=== PATIENT | female | born 1955 | race Caucasian/White ===

== ENCOUNTER 2017-07-03 08:21 | Outpatient (CLI) | payer OTHER | END 2017-07-03 08:22 | disposition home or self-care (01) | LOC: BICMAMMO 08:21 | PROVIDERS: ATTEND Obstetrics & Gynecology | DX: Z12.31 Encounter for screening mammogram for malignant neoplasm of breast (principal) | CPT/HCPCS: 77063; 77067 ==

== ENCOUNTER 2018-03-20 13:34 | Outpatient (CLI) | payer OTHER ==
--- NOTE | 2018-03-20 17:07 | MRI ---
MRI THORACIC SPINE WITHOUT CONTRAST: 03/20/18 INDICATION: 62-year-old female with history of radiculopathy and back pain. TECHNIQUE: Multiplanar and multisequence MRI images were obtained in the thoracic spine without IV contrast. No comparisons are available. FINDINGS: No acute fracture is demonstrated. Spinal alignment is preserved. Thoracic spinal cord appears within normal limits. At the T1-T2 level, there is no appreciable central canal or neural foraminal narrowi ng. T2-T3 level: There is a small left paracentral protrusion without appreciable central canal or neural foraminal narrowing. At T3-T4, there is no appreciable central canal or neural foraminal narrowing. There is a small left paracentral protrusion. At T4-T5, there is a small left paracentral protrusion without appreciable central canal or neural fo raminal narrowing. At T5-T6, there is a small central protrusion causing mild ventral effacement of the subarachnoid spa ce and ventral cord. At T6-T7, there is a small central to right paracentral disc protrusion without appreciable central c anal or neural foraminal narrowing. At T7-T8, there is no appreciable central canal or neural foraminal narrowing. At T8-T9, there is no appreciable central canal or neural foraminal narrowing. At T9-T10, there is no appreciable central canal or neural foraminal narrowing. At T10-T11, there is no appreciable central canal or neural foraminal narrowing. At T11-T12, there is no appreciable central canal or neural foraminal narrowing. At T12-L1, there is no appreciable central canal or neural foraminal narrowing. IMPRESSION: Multilevel spondylosis of the thoracic spine with mild central protrusion at T5-T6 causing mild ventr al effacement of the subarachnoid space and ventral cord without cord signal abnormality. POS: [facility]
--- NOTE | 2018-03-20 17:53 | MRI ---
MRI CERVICAL SPINE: 03/20/18 Multiplanar and multisequential imaging cervical spine obtained. INDICATIONS: Herniation cervical intervertebral disc. Chronic neck pain. Comparison made to MRI cervical spine from [facility] dated 11/25/16. FINDINGS: Cervical vertebrae continue to maintain height and alignment. Mild wedging with degenerative osteophy zan are seen at C5, C6 and C7 levels, unchanged from prior exam. There is loss of disc space at C5-6, stable from prior exam. No significant abnormality at C2-3. At C3-4, minimal bulge. Anterior subarachnoid space is preserved. No central canal or significant for aminal stenosis. At C4-5, there is a disc osteophyte complex with disc protrusion centrally and paracentrally to the r ight. This impinges on the anterior cord producing mild indentation of the anterior cord. There is ri ght foraminal encroachment due to the disc osteophyte complex and facet hypertrophy. Findings are similar to the prior study. At C5-6, degenerative disc changes as noted above. Mild disc bulge and spondylosis is present effacin g the anterior subarachnoid space. No cord impingement. No significant foraminal encroachment. At C6-7, disc bulge and spondylosis is seen centrally and paracentrally to the right flattening the a nterior thecal sac and mildly effacing the anterior subarachnoid space. No cord impingement. No signi ficant foraminal encroachment or stenosis. Cord signal is normally preserved. IMPRESSION: Degenerative disc changes of C4-5, C5-6 and C6-7 as described above. Disc protrusion with disc osteop hyte complex centrally and to the right at C4-5 is again noted as described above. This does impinge and mildly indent the anterior cord. POS: [facility]
== END 2018-03-20 13:35 | disposition home or self-care (01) ==
LOC: TBSIIMAG 13:34
PROVIDERS: ATTEND Anesthesiology Pain Medicine
DX: M50.10 Cervical disc disorder with radiculopathy, unspecified cervical region (principal); M50.121 Cervical disc disorder at C4-C5 level with radiculopathy; M25.78 Osteophyte, vertebrae; M47.814 Spondylosis without myelopathy or radiculopathy, thoracic region; M51.24 Other intervertebral disc displacement, thoracic region
CPT/HCPCS: 72141; 72146

== ENCOUNTER 2019-10-14 09:25 | Outpatient (CLI) | payer MEDICARE, BC ==
--- NOTE | 2019-10-14 11:10 | MMO ---
Bilateral MAMMO Bilat Screen [facility]. CLINICAL HISTORY: Patient is 63 years old and is seen for screening. The patient has no family history of breast cancer. The patient has no personal history of cancer. VIEWS: The views performed were: bilateral craniocaudal with tomosynthesis and bilateral mediolateral oblique with tomosynthesis. FILMS COMPARED: The present examination has been compared to prior imaging studies performed at [facility] on 07/03/2017, and at [facility] on 10/25/2011, 12/05/2014 and 04/22/2016. This study has been interpreted with the assistance of computer-aided detection. MAMMOGRAM FINDINGS: There are scattered fibroglandular densities. There are no suspicious masses, suspicious calcifications, or new areas of architectural distortion. IMPRESSION: THERE IS NO MAMMOGRAPHIC EVIDENCE OF MALIGNANCY. A ROUTINE FOLLOW-UP MAMMOGRAM IN 1 YEAR IS RECOMMENDED. THE RESULTS OF THIS EXAM WERE SENT TO THE PATIENT. ACR BI-RADS Category 1 - Negative MAMMOGRAPHY NOTE: 1. A negative mammogram report should not delay a biopsy if a dominant of clinically suspicious mass is present. 2. Approximately 10% to 15% of breast cancers are not detected by mammography. 3. Adenosis and dense breasts may obscure an underlying neoplasm. Reported by: NINFA JOHANSEN MD Electonically Signed: [id number]
--- NOTE | 2019-10-14 12:08 | CT ---
Exam: Noncontrast chest CT; CT lung scan low dose HISTORY:Lung cancer screening. Hormone signs of malignancy status. Former smoker. Patient quit 2011. COMPARISON: None TECHNIQUE: Low-dose screening lung CT is performed utilizing institutional protocol FINDINGS: Lung screening specific (LUNG-RADS): Category 1. Negative. No evidence of malignancy. No evidence of nodules Potential significant incidentals (lung RADS category S): None Pulmonary incidentals:No significant pulmonary incidentals Other incidentals: Calcified right perihilar and infrahilar lymph node IMPRESSION: 1. Lung RADS: Category 1. Negative exam. No evidence of malignancy or nodules 2. Lung Rask category S: Negative. No new or unknown potential significant incidental findings requir ing urgent additional evaluation 3. Other incidentals as above. Recommendation: Continued routine annual low-dose lung screening CT. Follow-up in one year.
--- NOTE | 2019-10-14 13:07 | BD ---
DEXA BONE DENSITY STUDY: HISTORY: Postmenopausal. FINDINGS: Lumbar Spine: BMD (g/cm2) L1 0.913 T-Score: -0.7 L2 0.873 T-Score: -1.4 L3 0.938 T-Score: -1.3 L4 0.983 T-Score: -0.7 L1-L4 0.931 T-Score: -1.1 Femoral Neck: 0.741 T-Score: -1.0 Total Femur: 0.875 T-Score: -0.6 Impression: 1. Osteopenia of the lumbar spine. Normal bone mineral density of the left femoral neck. 2. Ten-year fracture risk for a major osteoporotic fracture is 13% and of hip fracture 0.9%. These fracture probabilities were calculated for an untreated patient. POS: [facility]
== END 2019-10-14 09:26 | disposition home or self-care (01) ==
LOC: BICMAMMO 09:25
PROVIDERS: ATTEND Internal Medicine
DX: Z12.31 Encounter for screening mammogram for malignant neoplasm of breast (principal); Z19.1 Hormone sensitive malignancy status; Z13.820 Encounter for screening for osteoporosis; Z12.2 Encounter for screening for malignant neoplasm of respiratory organs; I89.8 Other specified noninfective disorders of lymphatic vessels and lymph nodes; M85.88 Other specified disorders of bone density and structure, other site; Z87.891 Personal history of nicotine dependence
CPT/HCPCS: 77063; 77067; 77080; G0297

== ENCOUNTER 2020-10-17 08:20 | Outpatient (CLI) | payer MEDICARE, BC | END 2020-10-17 08:21 | disposition home or self-care (01) | LOC: BICMAMMO 08:20 | PROVIDERS: ATTEND Internal Medicine | DX: Z12.31 Encounter for screening mammogram for malignant neoplasm of breast (principal) | CPT/HCPCS: 77063; 77067 ==

== ENCOUNTER 2020-10-17 08:22 | Outpatient (CLI) | payer MEDICARE, BC | END 2020-10-17 08:23 | disposition home or self-care (01) | LOC: BICCT 08:22 | PROVIDERS: ATTEND Internal Medicine | DX: Z12.2 Encounter for screening for malignant neoplasm of respiratory organs (principal); F17.211 Nicotine dependence, cigarettes, in remission | CPT/HCPCS: 71271 ==

== ENCOUNTER 2021-10-19 12:25 | Outpatient (CLI) | payer MEDICARE, BC | END 2021-10-19 12:26 | disposition home or self-care (01) | LOC: BICMAMMO 12:25 | PROVIDERS: ATTEND Internal Medicine | DX: Z12.31 Encounter for screening mammogram for malignant neoplasm of breast (principal); F17.211 Nicotine dependence, cigarettes, in remission | CPT/HCPCS: 71271; 77063; 77067 ==

== ENCOUNTER 2022-12-27 09:34 | Outpatient (CLI) | payer MEDICARE, BC | END 2022-12-27 09:35 | disposition home or self-care (01) | LOC: BICMAMMO 09:34 | PROVIDERS: ATTEND Internal Medicine | DX: Z12.31 Encounter for screening mammogram for malignant neoplasm of breast (principal); Z12.2 Encounter for screening for malignant neoplasm of respiratory organs; F17.211 Nicotine dependence, cigarettes, in remission | CPT/HCPCS: 71271; 77063; 77067 ==